=== PATIENT | female | born 1965 | race Caucasian/White ===

== ENCOUNTER 2018-02-13 19:23 | Emergency (ER) | payer SELFPAY ==
[~2018-02-13] VITALS: Ht 160 cm; Wt 59.4 kg
--- NOTE | 2018-02-13 19:47 | NUR ---
pt called for triage x1, no answer fr WR.
[2018-02-13 20:07] VITALS: BP 139/79
[2018-02-13] MEDS ORDERED: diphenhydrAMINE HCL 50 MG/ML VIAL ONE (20:55)
[2018-02-13] MEDS ORDERED: IBUPROFEN 600 MG TABLET PO ONE ×2 (20:56→21:00)
[2018-02-13] MEDS ORDERED: diphenhydrAMINE HCL 50 MG/ML VIAL IM ONE (21:00)
== END 2018-02-13 21:06 | disposition home or self-care (01) ==
LOC: ER 19:23
DX: S80.862A Insect bite (nonvenomous), left lower leg, initial encounter (principal); S80.861A Insect bite (nonvenomous), right lower leg, initial encounter; Z98.890 Other specified postprocedural states; Z98.82 Breast implant status; W57.XXXA Bitten or stung by nonvenomous insect and other nonvenomous arthropods, initial encounter; Y93.89 Activity, other specified; Y92.89 Other specified places as the place of occurrence of the external cause; Y99.8 Other external cause status
CPT/HCPCS: 96372; 99283; A4606; J1200; Z7610